=== PATIENT | male | born 1990 | race American Indian/Alaskan Native ===

== ENCOUNTER 2018-05-18 17:47 | Emergency (ER) | payer OTHER ==
[2018-05-18 17:57] VITALS: BP 166/94; PULSE 90; RESP 17; TEMP 98.6; O2SAT 98
--- NOTE | 2018-05-18 18:14 | ED PDOC ---
HPI: Abdomen Time Seen by Provider: 05/18/18 18:08 Chief Complaint (Nursing): Abdominal Pain History Per: Patient Onset/Duration Of Symptoms: Hrs (2) Current Symptoms Are (Timing): Still Present Severity: Mild Location Of Pain/Discomfort: RLQ Quality Of Discomfort: Unable To Describe Associated Symptoms: denies: Fever, Nausea, Vomiting, Diarrhea, Urinary Symptoms Exacerbating Factors: None Alleviating Factors: None Additional Complaint(s): RLQ abd pain x 2 hrs. Denies nausea vomiting or diarrhea. No fever or urinary sxs. Past Medical History Vital Signs: Last Vital Signs Temp 98.6 F 05/18/18 17:56 Pulse 90 05/18/18 17:56 Resp 17 05/18/18 17:56 BP 166/94 H 05/18/18 17:56 Pulse Ox 98 05/18/18 17:56 - Medical History PMH: No Chronic Diseases - Family History Family History: States: Unknown Family Hx - Allergies Allergies/Adverse Reactions: Allergies Allergy/AdvReac Type Severity Reaction Status Date / Time No Known Allergies Allergy Verified 05/18/18 17:56 Review of Systems ROS Statement: Except As Marked, All Systems Reviewed And Found Negative Gastrointestinal: Positive for: Abdominal Pain Physical Exam - Reviewed Nursing Documentation Reviewed: Yes Vital Signs Reviewed: Yes - Physical Exam Appears: Positive for: Non-toxic, No Acute Distress Head Exam: Positive for: ATRAUMATIC, NORMAL INSPECTION, NORMOCEPHALIC Skin: Positive for: Normal Color, Warm, DRY Eye Exam: Positive for: EOMI, Normal appearance, PERRL ENT: Positive for: Normal ENT Inspection Neck: Positive for: Normal, Painless ROM Cardiovascular/Chest: Positive for: Regular Rate, Rhythm Respiratory: Positive for: CNT, Normal Breath Sounds Gastrointestinal/Abdominal: Positive for: Soft, Tenderness (Mild tenderness RLQ. No rebound or guarding) Back: Positive for: Normal Inspection. Negative for: L CVA Tenderness, R CVA Tenderness Extremity: Positive for: Normal ROM Neurological/Psych: Positive for: Awake, Alert, Normal Tone - Laboratory Results Result Diagrams: 05/18/18 18:26 05/18/18 18:26 - ECG O2 Sat by Pulse Oximetry: 98 - Progress Re-evaluation Time: 19:00 Condition: Unchanged Disposition - Clinical Impression Clinical Impression: Abdominal pain - Patient ED Disposition Is Patient to be Admitted: Transfer of Care - Disposition Disposition: Transfer of Care Disposition Time: 19:00 Condition: FAIR Forms: [employer] (Tajik) Patient Signed Over To: Jumana Gutiérrez (Pending CT and reeval)
[2018-05-18 18:34] LABS: BASO % 0.5 % (0.0-2.0); EOS # 0.2 K/uL (0.0-0.7); EOS % 2.9 % (0.0-4.0); HEMOGLOBIN 12.9 g/dL (12.0-18.0); LYMPH # 2.3 K/uL (1.0-4.3); LYMPH % 33.5 % (20.0-40.0); MEAN CELL VOLUME 88.2 fl (80.0-94.0); MEAN CORPUSCULAR HEMOGLOBIN 29.2 pg (27.0-31.0); MEAN CORPUSCULAR HGB CONC 33.1 g/dL (33.0-37.0); MONO # 0.6 K/uL (0.0-0.8); NEUT # 3.9 K/uL (1.8-7.0); NEUT % 55.1 % (50.0-75.0); RBC 4.43 Mil/uL (4.40-5.90); RED CELL DISTRIBUTION WIDTH 13.2 % (11.5-14.5)
[2018-05-18 18:51] LABS: ALB/GLOB RATIO 1.4 (1.0-2.1); ALBUMIN 4.4 g/dL (3.5-5.0); BLOOD UREA NITROGEN 18 mg/dl (9-20); CALCIUM 9.5 mg/dL (8.4-10.2); GFR NON-AFRICAN AMERICAN > 60
[2018-05-18 18:56] LABS: ALT/SGPT 46 U/L (21-72); AST/SGOT 137 U/L (17-59)
--- NOTE | 2018-05-18 19:32 | ED PDOC ---
- Laboratory Results Result Diagrams: 05/18/18 18:26 05/18/18 18:26 Lab Results: Total Bilirubin 1.0 mg/dl (0.2-1.3) 05/18/18 18:26 AST 137 U/L (17-59) H 05/18/18 18:26 ALT 46 U/L (21-72) 05/18/18 18:26 Alkaline Phosphatase 65 U/L (38-126) 05/18/18 18: Total Protein 7.4 G/DL (6.3-8.2) 05/18/18 18: Albumin 4.4 g/dL (3.5-5.0) 05/18/18 18: Globulin 3.1 gm/dL (2.2-3.9) 05/18/18 18: Albumin/Globulin Ratio 1.4 (1.0-2.1) 05/18/18 18:26 - ECG O2 Sat by Pulse Oximetry: 98 Medical Decision Making Medical Decision Makin:00 Patient signed out to this provider from Dr. Villa. Pending CT scan. 21:30 CT abd/pelvis FINDINGS: LUNG BASES: The lung bases appear clear. No pleural effusions are seen. LIVER: Unremarkable. GALLBLADDER AND BILE DUCTS: The gallbladder appears within normal limits. No radioopaque gallstones are seen. No biliary ductal dilatation is evident. PANCREAS: Unremarkable. SPLEEN: Unremarkable. ADRENAL GLANDS: Unremarkable. KIDNEYS, URETERS, AND BLADDER: The kidneys appear within normal limits. There is no hydronephrosis or hydroureter. No urinary calculi are seen. The urinary bladder appeared normal in size and configuration. STOMACH AND BOWEL: Unremarkable appearance of the stomach. No evidence of bowel obstruction. Mucosal wall thickening is seen within the small intestinal tract with fluid present in the lumen compatible with diffuse enteritis. Infectious or inflammatory etiologies are thought most likely. No evidence to suggest colitis. APPENDIX: No evidence of acute appendicitis on CT examination. PERITONEUM: No free fluid. No free air. LYMPH NODES: No lymphadenopathy is evident. REPRODUCTIVE: Unremarkable as visualized. VASCULATURE: No evidence of abdominal aortic aneurysm. BONES: No aggressive appearing osseous lesion. No acute osseous pathology evident. IMPRESSION: 1. Evidence of diffuse enteritis. 21:39 Patient reports he is hungry now. he tolerated po, feels well. He is stable for discharge with diagnosis of enteritis. Patient referred to the clinic for follow up. Scribe Attestation: Documented by Ben Rutledge acting as a scribe for Jumana Gutiérrez MD. Provider Scribe Attestation: All medical record entries made by the Scribe were at my direction and personally dictated by me. I have reviewed the chart and agree that the record accurately reflects my personal performance of the history, physical exam, medical decision making, and the department course for this patient. I have also personally directed, reviewed, and agree with the discharge instructions and disposition. Disposition Counseled Patient/Family Regarding: Studies Performed, Diagnosis, Need For Followup - Clinical Impression Clinical Impression: Abdominal pain, Enteritis - POA Present On Arrival: None - Disposition Referrals: [facility] [Outside] [facility] [Outside] Disposition: Routine/Home Disposition Time: 21:39 Condition: IMPROVED Additional Instructions: follow up in the clinic in 2 days drink plenty of fluids, advance diet slowly return to the ED with any worsening or concerning symptoms Instructions: Acute Abdomen (Belly Pain), Adult (DC) Forms: [employer] (Luxembourgish)
[2018-05-18] MEDS ORDERED: Iohexol 300 100 ML IJ ONE (19:58)
[2018-05-18] MEDS ORDERED: Sodium Chloride 0.9% 50 ML IV ONE (19:58)
--- NOTE | 2018-05-19 09:58 | CT ---
Date of service: 05/18/2018 PROCEDURE: CT Abdomen and Pelvis with contrast HISTORY: Abd pain COMPARISON: None. TECHNIQUE: Following the intravenous administration of iodinated contrast material, a CT examination of the abdomen and pelvis was performed from the domes of the diaphragms to the symphysis pubis with reformatted datasets provided in axial, sagittal and coronal planes. Oral contrast was not administered as per referring physician request. Contrast dose: Omnipaque 300, 95 cc Radiation dose: Total exam DLP = 326.14 mGy-cm. This CT exam was performed using one or more of the following dose reduction techniques: Automated exposure control, adjustment of the mA and/or kV according to patient size, and/or use of iterative reconstruction technique. FINDINGS: LOWER THORAX: Unremarkable. LIVER: Unremarkable. No gross lesion or ductal dilatation. GALLBLADDER AND BILE DUCTS: Unremarkable. PANCREAS: Unremarkable. No gross lesion or ductal dilatation. SPLEEN: Unremarkable. ADRENALS: Unremarkable. No mass. KIDNEYS AND URETERS: Unremarkable. No hydronephrosis. No solid mass. VASCULATURE: Unremarkable. No aortic aneurysm. No aortic atherosclerotic calcification or mural plaque present. BOWEL: Stomach is collapsed and poorly evaluated as result. Gastritis would be difficult to completely exclude. Lack of oral contrast limits evaluation the gastrointestinal tract. There is a mildly prominent amount retained fecal material seen throughout the colon which could reflect an element of constipation. No bowel obstruction. APPENDIX: Appendix not clearly identified. No definite CT pattern to suggest appendicitis. PERITONEUM: Unremarkable. No free fluid. No free air. LYMPH NODES: Unremarkable. No enlarged lymph nodes. BLADDER: Unremarkable. REPRODUCTIVE: Unremarkable. BONES: No acute fracture. OTHER FINDINGS: None. IMPRESSION: Prominent retained fecal material throughout the colon may indicate constipation. Clinically correlate. No bowel obstruction, mesenteric edema, definitive ascites or free intra peritoneal gas collection. Limited evaluation the stomach which is collapsed. Mural thickening is difficult to exclude and gastritis is possible. Examination otherwise unremarkable. Preliminary report provided by Hussain, 05/18/2018, 9:30 p.m..
== END 2018-05-18 22:00 | disposition home or self-care (01) ==
LOC: H.ER 17:47
DX: R10.31 Right lower quadrant pain (principal); K52.9 Noninfective gastroenteritis and colitis, unspecified
CPT/HCPCS: 74177; 80053; 85025; 99283; Q9967